=== PATIENT | male | born 1950 | race Caucasian/White ===

== ENCOUNTER 2016-06-07 13:25 | Inpatient (IN) ==
--- NOTE | 2016-06-07 12:19 | Discharge Summary ---
Date of Encounter: 06/11/16 Time of Encounter: 06:44 - Discharge Diagnosis (1) Rotator cuff tear arthropathy of right shoulder Priority: Primary Status: Acute (2) Obesity (BMI 30.0-34.9) Priority: Secondary Status: Chronic (3) Hyperlipidemia Priority: Secondary Status: Chronic Qualifiers: Hyperlipidemia type: unspecified Qualified Code(s): E78.5 - Hyperlipidemia , unspecified - Discharge Medications Home Medications: Ascorbic Acid [Vitamin C] 1,000 mg PO DAILY 01/06/16 [History] Atorvastatin [Lipitor] 40 mg PO HS 02/21/16 [History] OxyCODONE Immed Rel [Roxicodone 5 MG] 5 - 10 mg PO Q6HR PRN #30 tablet 06/07/16 [Rx] Allergies/Adverse Reactions: Allergies codeine Allergy (Verified 06/07/16 13:49) Itching Primary care physician: Maryellen Watts CNP - Patient Status Disposition: Home, Self-Care Condition: Good Functional capacity at discharge: independent ambulation Overall status at discharge: patient is progressing back to baseline - Discharge Instructions Follow Up With: Maryellen Watts CNP [Primary Care Provider] - - Hospital Course Hospital course: Mr. Plummer is a 66 year old male did well PT and antibiotics dc stable condition - Time Spent with Patient Total time spent providing and/or coordinating discharge services:
--- NOTE | 2016-06-07 13:43 | Anesthesia Evaluation PreOp ---
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 History: Denies Any Significant HX Other Medical History: Renal (kidney stones) Anesthesia History: No Prior Anesthetic Complications, Past Anesthesia Alcohol Use: none Drug use: none Medications and Allergies Ascorbic Acid [Vitamin C] 1,000 mg PO DAILY 01/06/16 [History] Atorvastatin [Lipitor] 40 mg PO HS 02/21/16 [History] OxyCODONE Immed Rel [Roxicodone 5 MG] 5 - 10 mg PO Q6HR PRN #30 tablet 06/07/16 [Rx] Allergies codeine Allergy (Verified 01/06/16 11:07) Itching - Meds/Allergy Pre-op Review Medications Reviewed: Yes Allergies Reviewed: Yes Beta Blockers on Current Med List: No Anesthesia Results - Labs Laboratory Tests 05/30/16 05/30/16 05/30/16 10:40 10:40 10:40 WBC 6.7 Hgb 16.7 Hct 49.5 Plt Count 235 PT 12.0 INR 1.1 APTT 29.3 Sodium 142 Potassium 4.4 BUN 17 Creatinine 1.28 H - Imaging EKG: report reviewed (05/30/2016 SB) Anesthesia Exam O2 Sat Height 1.75 m Height 1.75 m Weight 93.894 kg Weight 93.894 kg O2 Sat by Pulse Oximetry 96 Vital Signs Temp Pulse Resp BP Pulse Ox 98.6 F 76 18 142/93 96 06/07/16 13:36 06/07/16 13:36 06/07/16 13:36 06/07/16 13:36 06/07/16 13:36 Height: 5'9'' Weight: 207 lbs NPO (# of Hours): 8 Pain Scale: 0 Pain Scale Used: Numeric (1 - 10) - HEENT Pupil (Motor): EOMI Mallampati: II Teeth: Normal (chipped upper right tooth) Oral Opening: Greater than 3 - RUBBERIZING MECHANIC LOC: Oriented RUBBERIZING MECHANIC Motor: Normal RUE, Normal LUE, Normal RLE, Normal LLE, Normal Face RUBBERIZING MECHANIC Sensory: Normal: RUE, LUE, RLE, LLE, Face - Cardiac Rhythm: Regular Murmur: None - Pulmonary Breath Sounds: bilateral Clear Respiratory Effort: Symmetrical Anesthesia Assess/Plan ASA Score: 2 Modified [place] Scale for Level of Consciousness: Cooperative, oriented, and tranquil Anesthetic Plan: General Monitoring Plan: Standard Monitors Recovery Plan: PACU
--- NOTE | 2016-06-07 13:46 | History & Physical Report ---
Date of Encounter: 06/07/16 Time of Encounter: 13:46 24 Hour HP Update - Instructions Instructions: If the History and Physical is less than 30 days old and was completed prior to A.M. admission and or procedure and has NOT been updated on calendar day of procedure please complete this update prior to performing procedure. - Update Patient reports changes in Medical Condition: No Changes in assessment/condition: No Changes in Medication: No Preop tests/diagnostics Reviewed: Yes Surgery Remains Indicated: Yes Consent for Planned Operative Procedure(s) Verified: Yes - Pre-Operative Checklist Preoperative Checklist Indicated: No Prophylactic Antibiotic Ordered: Yes Is VTE Prophylaxis Indicated?: Yes
[2016-06-07] MEDS ORDERED: CeFAZolin Pre 2,000 MG/100 ML 2,000 MG/100 ML BAG IVPB ONE (13:47)
[2016-06-07] MEDS ORDERED: Ringers Solution, Lactated 1,000 ML IVC SCH ×2 (14:00→16:53)
[2016-06-07] MEDS ORDERED: *HR* FentaNYL (PF) 100 MCG/2 ML VIAL ONE ×2 (14:11→14:12)
[2016-06-07] MEDS ORDERED: Bupivacaine/Clonidine Syringe 1 EACH SYRINGE ONE (14:11)
[2016-06-07] MEDS ORDERED: *HR* Midazolam HCl 5 MG/5 ML VIAL IVP ONE (14:11)
[2016-06-07] MEDS ORDERED: *HR* Midazolam HCl 2 MG/2 ML VIAL ONE (14:12)
[2016-06-07] MEDS ORDERED: *HR* Succinylcholine 200 MG/10 ML VIAL IVP ONE (14:14)
[2016-06-07] MEDS ORDERED: Dexamethasone 4 MG/ML VIAL ONE (14:14)
[2016-06-07] MEDS ORDERED: Ondansetron 4 MG/2 ML VIAL ONE (14:14)
[2016-06-07] MEDS ORDERED: *HR* Rocuronium Bromide 50 MG/5 ML VIAL ONE (14:14)
[2016-06-07] MEDS ORDERED: Lidocaine -MPF 2% 2 ML VIAL ONE (14:14)
[2016-06-07] MEDS ORDERED: *HR* Propofol 200 MG/20 ML VIAL IVP ONE (14:15)
[2016-06-07] MEDS ORDERED: EPHEDrine 50 MG/ML VIAL ONE (15:11)
--- NOTE | 2016-06-07 15:14 | Anesthesia Procedures ---
Date of Encounter: 06/07/16 Time of Encounter: 14:35 Procedures: Anesthesia - Nerve Block Procedure Date: 06/07/16 Time: 14:35 Allergies/Adv Reactions: codeine Pre-op Diagnosis: Right Shoulder Rotator Cuff Arthopathy Surgical Procedure: Reverse Right Total Shoulder Checklist: Correct Patient Identifier, Correct procedure, History checked Correct side: Right Blood Thinner: No Monitor Applied: EKG, BP, Pulse Oximetry Supplemental Oxygen via Nasal Cannula (L/min): 3 Sedation: Versed (mg): 5 Sedation: Fentanyl (mcg): 100 Indication: Post Op Analgesia Pre-op Neuro Deficits: No Block Type: Supraclavicular Catheter placed: No Sterile Technique: Yes Ultrasound used: Yes Anatomy identified: Yes Visual spread of Local: Yes Neuro Stimulation: Yes Nerve Stimulator Range: 0.2 - 0.4 mA Blood on Needle Aspiration: No Smooth Injection of Local: Yes Pain with Injection of Local: No Prep: Chlorhexadine Needle: 22 x 50 mm Stimuplex Local: 0.25% Bupivicaine w/Clonidine 20 mcg/cc Volume (cc): 40 Number of Attempts: 1 Complications: None/effective block Vitals: vss
[2016-06-07] MEDS ORDERED: Albuterol 2.5 MG/3 ML NEBULIZER IH PRN (15:17)
[2016-06-07] MEDS ORDERED: *HR* Promethazine 25 MG/ML VIAL IVP PRN (15:17)
[2016-06-07] MEDS ORDERED: *HR* Morphine 2 MG/ML SYRINGE IVP PRN (15:17)
--- NOTE | 2016-06-07 15:54 | Orthopedic Operative Note ---
Date of procedure: 06/07/16 Pre-op diagnosis: Right shoulder cuff tear arthropathy Post-op diagnosis: same Procedure: Procedure: Right Total Shoulder Replacment Reverse, Estimated blood loss: 100 cc Hardware:Arthrex large glenoid baseplate, 2 4.5 screws. 1 6.5 screw, 42 lateral glenosphere, 12 humeral stem, poly insert 3 and 12 metal Exam Under anesthesia: Full motion and stability Procedural Notes: Irreparable tear supraspinatus Operative procedure: The patient was brought to the operating room and placed on the operating room table. After general anesthesia was administered the operative shoulder was examined. Findings were noted. The patient was placed in the modified beachchair position. All pressure points were padded appropriately. And the head was stabilized in the neutral position. The operative extremity was prepped and draped in the sterile surgical fashion. The patient received IV antibiotics prior to skin incision. A standard deltopectoral approach was made to the operative shoulder. Incision was made to the skin and subcutaneous tissue,hemo stasis was obtained with Bovie cautery. Using careful blunt dissection the cephalic vein was identified and mobilized medially. The deltopectoral interval was developed and the clavipectoral fascia was incised. The subscap was released off the lesser tuberosity and tagged with #2 FiberWire suture. The humerus was dislocated patient noted to have irreparable tear supraspinatus tendon, and the humeral cut was made along the anatomic neck. Anterior and posterior Bankart retractors were placed to expose the glenoid. The glenoid guide was seated and the centering hole was made. It was reamed with the appropriate large reamer. Large baseplate was seated and secured with (2) 4.5 screws and one 6.5 screw. The baseplate was irrigated and dried and the 42 lateral Glenosphere was seated and secured with the Toro taper. The Toro taper was tested and found to be secure the humerus was redislocated and prepared with the diaphyseal reamers, followed by a broaching process up to the appropriate size 12 in the patient's anatomic version. The metaphyseal reamer was then utilized. Trial reduction found the shoulder to be relocatable. Trial components were removed and drill holes were placed in the lesser tuberosity. They were filled with #5 FiberWire suture . These sutures were used for a subscap repair. The appropriate 12 stem was impacted in place in the patient's anatomic version. Trial reduction found the shoulder to be relocatable and stable with the appropriate 12 metal 3 Estrellita Trial component was removed and the 12 metal 3 Estrellita was seated and secured the shoulder was reduced. The shoulder had excellent motion and excellent stability and no evidence of dislocation. The deep tissue was irrigated with pulse irrigation. The subscap was repaired. The deltopectoral interval was closed with a running #1 PDS suture, subcutaneous tissue was irrigated and closed with 0 PDS suture, the skin was closed with Dermabond. The patient was placed in a sterile dressing, abduction brace and extubated. The patient was then transferred to the recovery room in stable condition. Anesthesia: RIOS Surgeon: Harman Arroyo Condition: stable Disposition: PACU
--- NOTE | 2016-06-07 16:35 | Anesthesia Evaluation Post Op ---
Date of Encounter: 06/07/16 Time of Encounter: 16:35 - Vital Signs Vital Signs: vss - Lungs Lungs: Clear Ascult./Percussion - Airway Airway: Non-obstructed - Cardiovascular Regular Rate - Mental Status Mental Status: Alert & Oriented, Answers Appropriately - Pain Pain Scale: 0 - Nausea Vomiting Nausea Vomiting: Not Present - Hydration Hydration: Ice chips - Discharge PostOp Status: Transfer Patient to floor
[2016-06-07 16:42] LABS: Hematocrit 45.6 % (37.5-50.1); Hemoglobin 15.5 g/dL (12.9-16.9)
[2016-06-07] MEDS ORDERED: *HR* OxyCODONE Immed Rel 5 MG TABLET PO PRN (16:53)
[2016-06-07] MEDS ORDERED: *HR* HYDROmorphone (PF) 1 MG/ML SYRINGE IVP PRN (16:53)
[2016-06-07] MEDS ORDERED: Ondansetron 4 MG/2 ML VIAL IVP PRN (16:53)
[2016-06-07] MEDS ORDERED: Temazepam 15 MG CAPSULE PO PRN (16:53)
[2016-06-07] MEDS ORDERED: Naloxone 0.4 MG/ML INJ IVP PRN (16:53)
[2016-06-07] MEDS ORDERED: Sennosides 8.6 MG TABLET PO PRN (16:53)
[2016-06-07] MEDS ORDERED: MOM Conc 10 ML UD.LIQ PO PRN (16:53)
[2016-06-07] MEDS ORDERED: Acetaminophen 325 MG TABLET PO PRN (16:53)
[2016-06-07] MEDS ORDERED: *HR* Enoxaparin 30 MG/0.3 ML SYRINGE SQ SCH (18:00)
[2016-06-07] MEDS: ceFAZolin 2,000 MG in D5% in Water 100 ML IVPB SCH (18:20)
[2016-06-07] MEDS: *HR* Enoxaparin 30 MG/0.3 ML SYRINGE SQ SCH (18:21)
[2016-06-08] MEDS: ceFAZolin 2,000 MG in D5% in Water 100 ML IVPB SCH (00:42)
[2016-06-08] MEDS: *HR* Enoxaparin 30 MG/0.3 ML SYRINGE SQ SCH (06:29)
[2016-06-08 06:47] LABS: Hematocrit 45.5 % (37.5-50.1); Hemoglobin 15.7 g/dL (12.9-16.9)
[2016-06-08] MEDS: *HR* OxyCODONE Immed Rel 5 MG TABLET PO PRN ×2 (07:55→12:23)
--- NOTE | 2016-06-08 08:49 | Orthopedics Progress Note ---
Date of Encounter: 06/08/16 Time of Encounter: 08:47 - Assessment and Plan (1) Rotator cuff tear arthropathy of right shoulder Current Visit: Yes Status: Acute POD#1 - Right TSR-r Doing well. D/C home today with outpatient Subjective Principal diagnosis: POD#1 - Right TSR-r Interval history: POD#1 - Right TSR-r Patient doing well- Afebrile; Vitals stable. Dressing - clean, dry and intact; no erythema, minimal ecchymosis. Shoulder ROM limited. No forearm tenderness. Nerve block wearing off. NV intact distally. Shoulder Precautions - Continue in sling, D/C'ed Pillow. Continue PT. Stable for D/C from orthopedic standpoint - D/C home with outpatient PT. ASA 325 daily x 21 days for DVT prophylaxis Objective Vital signs: Vital Signs Temp Pulse Resp BP Pulse Ox 06/08/16 06:00 97.9 F 58 18 117/70 97 06/08/16 05:22 97.9 F 58 16 116/73 92 L 06/08/16 00:13 97.7 F 71 16 96/58 92 L 06/07/16 21:00 98.0 F 83 16 118/67 95 06/07/16 20:08 98.4 F 85 16 113/66 95 06/07/16 19:07 97.6 F 76 18 98/58 95 06/07/16 18:07 97.6 F 68 16 117/72 95 06/07/16 17:30 97.5 F L 68 16 125/68 92 L 06/07/16 16:56 97.5 F L 65 16 105/69 94 L 06/07/16 16:34 97.0 F L 66 16 115/72 100 06/07/16 16:24 97.0 F L 69 16 118/76 98 06/07/16 16:14 70 16 128/85 100 06/07/16 16:04 73 16 130/78 99 06/07/16 15:54 97.4 F L 67 20 140/84 100 06/07/16 14:39 57 119/67 96 06/07/16 14:15 89 148/79 99 06/07/16 13:36 98.6 F 76 18 142/93 96 Intake and Output 06/07/16 06/08/16 06/08/16 23:59 07:59 15:59 Intake Total 100 / 100 Balance 100 / 100 Intake: IV Fluids 100 / 100 Ancef 2,000 MG In 100 / 100 Dextrose 5% 100 ML @ 200 mls/hr IVPB Q8HR [facility] Rx#: [id number] Incision: clean and dry - Labs CBC & BMP: 06/08/16 06:24 - VTE Documentation of Mechanical Device: Venous foot pump, device Consult Discharge Plan - Plan Referrals: Maryellen Watts, [facility] [Primary Care Provider] -
[2016-06-08 11:12] VITALS: BP 114/74
== END 2016-06-08 13:23 | disposition home or self-care (01) | DRG 483 ==
LOC: SAMDAY 13:25 → 3NENU 16:50
PROVIDERS: ADMIT Orthopaedic Surgery; ATTEND Orthopaedic Surgery

== ENCOUNTER 2016-08-30 12:55 | Inpatient (IN) ==
[2016-08-30] MEDS ORDERED: 0.9 % Sodium Chloride 1,000 ML ONE ×2 (13:02→13:03)
[2016-08-30] MEDS ORDERED: *HR* Heparin 10,000 UNIT/10 ML VIAL ONE (13:02)
[2016-08-30] MEDS ORDERED: Heparin 1,000 UNITS/500 mL NS 500 ML ONE (13:02)
[2016-08-30] MEDS ORDERED: *HR* Bivalirudin 250 MG VIAL IVC ONE (13:03)
[2016-08-30] MEDS ORDERED: Nitroglycerin 1,000 MCG/10 ML VIAL IV ONE (13:03)
[2016-08-30] MEDS ORDERED: *HR* Midazolam HCl 5 MG/5 ML VIAL IVP ONE (13:41)
[2016-08-30] MEDS ORDERED: *HR* FentaNYL (PF) 250 MCG/5 ML VIAL ONE (13:41)
[2016-08-30] MEDS ORDERED: Nitroglycerin 0.4 MG TAB.SUBL SL PRN (14:38)
[2016-08-30] MEDS ORDERED: *HR* Morphine 2 MG/ML SYRINGE IVP PRN (14:38)
[2016-08-30] MEDS ORDERED: Ondansetron 4 MG/2 ML VIAL IVP PRN (14:38)
--- NOTE | 2016-08-30 14:44 | Invasive Diagnostic Lab Proc ---
Name: Jourdan Plummer Date of Study: 08/30/2016 Date: 1950 Ht: 69.0in Medical Record#: [id number] Age: 66 Wt: 189.60lb Gender: Male BSA: 2.02 Order #: [id number] BMI: 27.99 Physicians Procedure Physician: Fany Singleton MD, [facility] Referring MD: Referring MD: Staff Name Position Time In Luna Subramanian RT (R) Scrub 01:47 PM Yonathan Huff RN Economic Specialist 01:48 PM Nirmala Cantor RN Monitor 01:48 PM Maddy Singh RN Nurse 01:50 PM Indications Indication STEMI Procedures Performed Procedure L HRT ARTERY/VENTRICLE ANGIO PRQ CARD REVASC DC 1 VSL Pre-Procedure Checklist Informed consent is complete signed and on chart. H\\T\\P is on chart. ID band is on and ID verified with patient. Patient NPO for procedure The procedure was described for the patient and questions were answered. Blood Pressure: 121/81 ECG is on chart. Rhythm: NSR Plan of Care Patient will tolerate the procedure without complications. Adequate level of comfort will be maintained. Hemodynamics will remain stable Patient will recover from procedure without complications. Respiratory function will be maintained. Cardiac rhythm will remain stable. Patient temperature will be maintained. Patient and/or family have verbalized understanding of the procedure. Patient Education Chief Complaint/Reason for Test: Cardiac Cath Developmental Category: Geriatric (65+ years) Developmentally Appropriate for Age: Yes Learning Barriers: None Education Needs: Procedure Education Method: Verbal Information Taught: Cardiac Cath Educational Evaluation: Able to repeat information Intravenous Access Time IV Size Location DC'd Fluid/Drip Rate Units RN 01:45 PM 18g 1 1/4" Patent On Arrival Lt Arm 01:45 PM 18g 1 1/4" Patent On Arrival Rt Hand No Allergies codeine Vital Signs Time BP (mmHg) HR (bpm) O2 Sat. RR (bpm) LOC 121 / 81 71 98 % 16 01:51 PM / % 5 = Fully awake and oriented or at pre-proc level 01:51 PM / % 4 = Oriented but drowsy 01:52 PM 158 / 87 86 100 % 22 01:57 PM 148 / 72 63 97 % 26 02:01 PM 144 / 85 82 96 % 12 02:06 PM 143 / 76 82 97 % 13 02:11 PM 136 / 88 84 95 % 22 02:06 PM / % 4 = Oriented but drowsy Procedural Medications Time Medication Dose Units Method Given By 01:49 PM Oxygen 2 L/min nasal cannula Yonathan Huff RN 01:53 PM Versed 2 mg Intravenous Maddy Singh RN 01:53 PM Fentanyl 50 mcg Intravenous Maddy Singh RN 01:54 PM Lidocaine 2% 20 ml Subcutaneous Fany Singleton MD, FACC 02:05 PM Nitroglycerin 200 mcg Intracoronary Fany Singleton MD, FACC 02:16 PM Reopro Bolus: 10.8 ml Intravenous Yonathan Huff RN 02:00 PM Heparin 1000 units Intravenous Yonathan Huff RN ASA Classification: CLASS II- Mild systemic disease (i.e. well-controlled diabetes, hypertension, asthma, cigarette smoking) Emergent Procedure: ASA score is assumed Judi Score Preprocedure Postprocedure Activity 2- Moves 4 extremities sustained head lift Activity 2- Moves 4 extremities sustained head lift Circulation 2- SBP +/= 20 points of pre-anesthetic level Circulation 2- SBP +/= 20 points of pre-anesthetic level Consciousness 2- Awake and alert oriented x 3 Consciousness 2- Awake and alert oriented x 3 O2 Saturation 2- Able to maintain O2 satruation of 92% on room air O2 Saturation 2- Able to maintain O2 satruation of 92% on room air Respiratory 2- Able to deep breathe and cough well Respiratory 2- Able to deep breathe and cough well Total Score 10 Total Score 10 Contrast Agent: Isovue Diagnostic Contrast: 105 ml Total Contrast: 105 ml Fluoro Dose: 481 mGy Activated Clotting Time Time Seconds to Clot 02:00 PM 227 02:14 PM 147 Procedure Log Time Note Enter By 01:08 PM Recorded Pressure: LV, Ao, HR=83, Condition=Condition 1 (Left Ventricle) LV 165/43/113, (Aorta) Ao 109/87/98 01:45 PM CathStat 01:47 PM Pt arrived to hospital laboratory technician 2 at 13:47 csmith 01:48 PM Luna Subramanian (R) Position: Scrub Time in: 13:47 csmith 01:48 PM Yonathan Huff RN Position: Economic Specialist Time in: 13:48 csmith 01:48 PM Nirmala Cantor RN Position: Monitor Time in: 13:48 csmith 01:48 PM Patient charges- Angio tray pack, Navilyst 3mm J, Pulse Oximetry and ACIST tubing and transducer csmith :48 PM Case Delayed No csmith :48 PM Hair removed from procedure site in procedure lab using clippers. Bilateral groin prepped with Chloraprep by Luna Subramanian (R), safety strap applied then patient was draped. Skin intact. csmith :48 PM Physician arrived 13:48 csmith :49 PM Meet and greet completed csmith :49 PM Time: 13:49 Oxygen on at 2 L/min per nasal cannula [facility] Huff [facility] PM Procedure start 13:49 scoates 01:50 PM Maddy Singh RN Position: Nurse Time in: 13:50 csmith :50 PM Vitals capture started with the following parameters, Patient=Adult, Interval=5 min, Initial Hlhjdhls=149 mmHg, Deflation Rate=5 mmHg, Cuff placed on Left Arm 01:51 PM Time: 13:51 Patient comfortable and pain free: Yes csmith :51 PM Time: 13:51LOC: 5 = Fully awake and oriented or at pre-proc level csmith :52 PM HR=86 bpm, UOPK=817/87 mmhg, ZlM1=015.0 %, Resp=22 B/min, Comment=nsr 01:53 PM Clinical Presentation: STEMI or equivalent csmith :53 PM Time out performed according to hospital [facility] PM Time: 13:53 Versed 2 mg Intravenous Given by Maddy Singh RN [facility] :53 PM Time: 13:53 Fentanyl 50 mcg Intravenous Given by Maddy Singh RN [facility] :54 PM Time: 13:54 20 ml Lidocaine 2% to right groin Subcutaneous Given by Fany Singleton MD, [facility] :54 PM Access obtained by percutaneous puncture. 6Fr 11cm Terumo Destination sheath placed in right Femoral artery. [id number] [facility] :54 PM Pressure channel 1 zeroed. 01:55 PM 5Fr FL 4 catheter inserted over the wire [facility] scoates 01:56 PM LCA angiography performed in multiple views. scoates 01:56 PM Pressure channel 1 zeroed. 01:56 PM Pressure channel 1 zeroed. 01:56 PM Recorded Pressure: Ao, HR=75, Condition=Condition 1 (Aorta) Ao 108/71/88 01:57 PM HR=63 bpm, IDQO=804/72 mmhg, SpO2=97.0 %, Resp=26 B/min 01:57 PM Catheter removed scoates 01:57 PM 6Fr JR4 Runway guide catheter was used to cannulate the PCI vessel successfully. reused? No scoates 01:58 PM Recorded Pressure: Ao, HR=81, Condition=Condition 1 (Aorta) Ao 137/73/101 01:59 PM RCA angiography performed in multiple views. scoates 01:59 PM Recorded Pressure: Ao, HR=84, Condition=Condition 1 (Aorta) Ao 134/80/104 02:00 PM Time: 14:00 Heparin 1000 units Intravenous Given by Yonathan Huff RN scoates 02:00 PM At 14:00 the ACT was 227 seconds. scoates 02:01 PM .014 Prowater 180cm guide wire across target lesion- successful. reused? No scoates 02:01 PM HR=82 bpm, MKLD=196/85 mmhg, SpO2=96.0 %, Resp=12 B/min, Comment=nsr 02:01 PM 2.5 mm x 15 mm Emerge Monorail balloon across target lesion- successful. reused? No scoates 02:02 PM Balloon inflated @ 10 josephine for 26 seconds scoates 02:02 PM Lesion found in Proximal RCA. Pre Stenosis: 99 Pre BRIDGET Flow: 3: Complete and Brisk Flow/Perfusion scoates 02:03 PM Balloon catheter removed intact. scoates 02:03 PM 3.5mm x 20mm Synergy drug-eluting stent across target lesion- successful Lot #[id number] scoates 02:04 PM Recorded Pressure: Ao, HR=84, Condition=Condition 1 (Aorta) Ao 124/85/104 02:04 PM Stent deployed @ 12 josephine for 30 seconds scoates 02:05 PM Stent delivery system removed intact. scoates 02:06 PM Time: 14:05 Nitroglycerin 200 mcg Intracoronary Given by Fany Singleton MD, [facility] scoates 02:06 PM Time: 13:51 Patient comfortable and pain free: Yes scoates 02:06 PM Time: 13:51LOC: 4 = Oriented but drowsy scoates 02:06 PM HR=82 bpm, TRKN=413/76 mmhg, SpO2=97.0 %, Resp=13 B/min, Comment=nsr 02:07 PM Stent delivery system removed intact. scoates 02:07 PM 5Fr Pigtail catheter inserted over the wire [facility] scoates 02:08 PM Pressure channel 1 zeroed. 02:08 PM Catheter selectively placed in left ventricle scoates 02:08 PM Recorded Pressure: LV, HR=81, Condition=Condition 1 (Left Ventricle) LV 116/10/11 02:08 PM Bolus angiogram of left Ventricle complete: 8 ml/sec for a total of 24 mls scoates 02:10 PM Bolus angiogram of right Femoral complete: 4 ml/sec for a total of 7 mls scoates 02:11 PM HR=84 bpm, QYEW=854/88 mmhg, SpO2=95.0 %, Resp=22 B/min 02:12 PM Coronary Dominance: right scoates 02:14 PM At 14:14 the ACT was 147 seconds. scoates 02:17 PM Time: 14:16 Reopro Bolus: 10.8 ml Intravenous Given by Yonathan Huff RN [place] pump scoates 02:17 PM Procedure completed at 14:17 scoates 02:17 PM Sign out completed: Radiation Dose 481 mGy Fluoro Time: 3.6 Isovue 370 - 200ml contrast 105 ml given by Fany Singleton MD, [facility]. Complications: NoneCardiac Rehab Consult needed: YesConfirmed administered medications: Yes scoates 02:17 PM Isovue 370 - 500ml,1 Bottle(s) used. scoates 02:17 PM Sheath left in place to be pulled on floor/holding area scoates 02:18 PM Post ECG NSR scoates 02:18 PM Post Blood Pressure 143/79 scoates 02:18 PM 14:18 Post Pulses Bilateral DP \\T\\ PT 1+ scoates 02:18 PM Information taught Cardiac Cath and PCI scoates 02:19 PM Education needs Procedure, Plan of Care, and Responsibilities of Patient in Care scoates 02:19 PM Learning barriers :None scoates 02:19 PM Education Methods Verbal scoates 02:19 PM Education evaluation Able to repeat information scoates 02:19 PM Site status No bleeding/hematoma - Rt Groin as reported by Luna Subramanian RT (R) at 14:19 scoates 02:19 PM Opsite applied scoates 02:19 PM Plavix, Effient or Brilinta given at [place] scoates 02:20 PM Coronary Dominance: right scoates 02:20 PM Lesion found in LMCA. Pre Stenosis: 15 Pre BRIDGET Flow: scoates 02:21 PM Lesion found in Proximal LAD. Pre Stenosis: 30 Pre BRIDGET Flow: scoates 02:21 PM Time: 14:06 Patient comfortable and pain free: Yes scoates 02:21 PM Time: 14:06LOC: 4 = Oriented but drowsy scoates 02:24 PM Lesion found in Proximal LAD. Pre Stenosis: 30 Pre BRIDGET Flow: scoates 02:24 PM Lesion found in Mid LAD. Pre Stenosis: 30 Pre BRIDGET Flow: scoates 02:24 PM Lesion found in Distal LAD. Pre Stenosis: 30 Pre BRIDGET Flow: scoates 02:24 PM Lesion found in Proximal Circumflex. Pre Stenosis: 20 Pre BRIDGET Flow: scoates 02:29 PM Report given to Roxane SANCHEZ Pt taken to ICU Room #7. 14:29 scoates 02:31 PM Delay to floor No scoates 02:31 PM Patient out of room: 14:31 scoates 02:32 PM Family placed in consult room. scoates 02:32 PM Complications: None scoates 02:32 PM Fluoro Time: 3.6 scoates 02:33 PM Left Main Coronary Artery with 15% stenosis scoates 02:33 PM Proximal Left Anterior Descending Coronary Artery with 30% stenosis. If graft is supplying this territory, 0 % stenosis. scoates 02:33 PM Mid/Distal Left Anterior Descending Coronary Artery and diagonal branches with 30% stenosis. If graft is supplying this area, 0 % stenosis scoates 02:34 PM Circumflex, Obtuse Marginal, Left Posterior Descending, and Left Posterolateral Coronary Arteries with 20 % stenosis. If graft is supplying this area, 0 % stenosis scoates 02:34 PM Right Coronary, Right Posterior Descending Arteries with Right Posterolateral and Acute Marginal branches with 99 % stenosis. If graft is supplying this area, 0 % stenosis scoates Complications Complication None None Hemodynamics Pressures Site Systolic/A Wave Diastolic/V Wave Mean AO 108 71 88 AO 137 73 101 AO 134 80 104 AO 124 85 104 LV 116 10 11 LV 165 43 113 AO 109 87 98 Post Procedure Information Blood Pressure: 143/79 mmHg Rhythm: NSR Post procedural instructions were given Closure Device Time Device Success/Fail 08/30/2016 2:29:00 PM Manual Compression - sheath to be pulled in ICU when appropriate Site Checks Time Location Status Staff Sheath In? Note 02:19 PM Rt Groin No bleeding/hematoma Luna Subramanian RT (R) Pulses Time Site Pre-Procedure Post-Procedure Note 08/30/2016 1:45:00 PM Bilateral DP \\T\\ PT 1+ 2:18:00 PM Bilateral DP \\T\\ PT 1+ Updated by Yonathan Huff RN on 08/30/2016 2:36:44 PM electronically signed on 08/30/2016 2:39:30 PM with status of Final
--- NOTE | 2016-08-30 16:33 | Invasive Diagnostic Lab ---
Name: Jourdan Plummer Date of Study: 08/30/2016 Date: 1950 Ht: 175.3 cm /69.0 in Medical Record#: [id number] Age: 66 Wt: 86. kg / 189.60 lb Account/Order#: [id number] Gender: Male BSA: 2.02 Order #: [id number] Fluoro Dose: 481 mGy BMI: 27.99 Procedure Physician: Fany Singleton MD, [facility] Referring MD: Referring MD: Procedures Performed: LEFT HEART CATH PCI of Acute VT Indications: STEMI Impressions: Single vessel coronary artery disease. The left ventricle is normal and has normal contractility EF 65% Patient had successful PTCA/Drug-Eluting Stent placement in the proximal RCA. Recommendations: DAPT for one year minimum uninterrupted. Optimal medical therapy of patient's disease. Aggressive risk factor modification. Patient being referred for cardiac rehab. History/Risk Factors: arthritis high chol r shoulder sx Hypertension Procedure Access obtained in the right Femoral artery by percutaneous puncture Patient had successful PTCA/Drug-Eluting Stent placement in the proximal RCA. Complications: None, None Contrast: Isovue 105ml Closure Device: Manual Compression Hemodynamics: Pressures Site Systolic/ A Wave Diastolic/ V Wave End Diastolic/ Mean HR AO 108 71 88 75 AO 137 73 101 81 AO 134 80 104 84 AO 124 85 104 84 LV 116 10 11 81 LV 165 43 113 82 AO 109 87 98 84 LV Ventriculography Ejection Method: LV Gram Ejection Fraction: 65% Wall Motion: CASE Anterobasal Normal Anterolateral Normal Apical: Normal Inferoapical Normal Inferobasal Normal Coronary Dominance: right Lesion Findings/Interventions * Left Main Coronary Artery There is a 15% stenosis in the LMCA. * Left Anterior Descending There is a 30% stenosis in the Proximal LAD. There is a 30% stenosis in the Mid LAD. There is a 30% stenosis in the Distal LAD. * Circumflex There is a 20% stenosis in the Proximal Circumflex. * Right Coronary Artery There is a 20 mm long, 99% stenosis in the Proximal RCA. The lesion has a BRIDGET flow of 3 and has thrombus present. An intervention was performed on the Proximal RCA with a final stenosis of 0%. There were no lesion complications. The final BRIDGET flow was 3. Interventional Device(s) Vessel Segment Type Name Diameter (mm) Length (mm) Proximal RCA Balloon Emerge Monorail 2.5 15 Proximal RCA Drug Eluting Stent Synergy 3.5 20 Updated by Yonathan Huff RN on 08/30/2016 2:37:22 PM Fany Singleton MD, [facility] electronically signed on 08/30/2016 4:26:49 PM with status of Final
[2016-08-30 16:37] LABS: Basophils % 0.4 %; Eosinophils % 0.2 %; Hematocrit 47.9 % (37.5-50.1); Hemoglobin 16.4 g/dL (12.9-16.9); Immature Granulocytes % 0.5 % (0-4); Lymphocytes # 1.4 K/mcL (0.6-4.6); Lymphocytes % 12.4 %; Mean Corpuscular HGB Conc 34.2 g/dL (31.6-35.5); Mean Corpuscular Hemoglobin 30.6 pg (28.0-33.3); Mean Corpuscular Volume 89.4 fL (83.0-100.0); Mean Platelet Volume 8.9 fL (9.4-12.4); Monocytes # 0.4 K/mcL (0.0-1.3); Monocytes % 3.4 %; Neutrophils # 9.2 K/mcL (1.6-8.9); Platelet Count 311 K/mcL (140-400); Red Blood Count 5.36 M/mcL (4.19-5.50); Red Cell Distribution Width 12.4 % (11.5-14.5); Segmented Neutrophils % 83.1 %
--- NOTE | 2016-08-30 16:37 | Cardiology History & Physical ---
Date of Encounter: 08/30/16 Time of Encounter: 13:50 Assessment and Plan (1) STEMI (ST elevation myocardial infarction) Current Visit: Yes Status: Acute Pt is currently experiencing acute inferior/posterior STEMI. Have discussed emergent LHC and probable PCI with patient. Agreeable to proceed. The assessment and plan as outlined above was discussed with the patient and/or family members who expressed understanding and agreement. All questions were answered. Further recommendations pending results of cath. Qualifiers: Involved coronary artery: unspecified coronary artery Qualified Code(s): I21.3 - ST elevation (STEMI) myocardial infarction of unspecified site (2) Hyperlipidemia Current Visit: No Status: Chronic Statin therapy. Qualifiers: Hyperlipidemia type: unspecified Qualified Code(s): E78.5 - Hyperlipidemia , unspecified History of Present Illness Chief complaint: chest pain HPI: Mr. Plummer is a 66 year old male with hyperlipidemia presents to [facility] as transfer from [place] ED for STEMI. 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 Associated with SOB. EMS contacted. EKG demonstrated inferior/posterior STEMI. Taken to [place] ED and transferred here for further evaluation/tx. Denies prior cardiac history. Past Med Surg Social Fam HX - Past Medical History Source: patient Medical history: arthritis, hyperlipidemia Psychiatric history: no psych history - Past Surgical History Surgical History: appendectomy, cholecystectomy, orthopedic, other (R shoulder) - Social History Smoking Status: Never smoker Smokeless Tobacco Status: No Alcohol use: none Drug use: none - Family History Father Living Status: Cause of : lymphoma Hx Family Cancer: (lymphoma) Medications and Allergies Ascorbic Acid [Vitamin C] 1,000 mg PO DAILY 01/06/16 [History] Atorvastatin [Lipitor] 40 mg PO HS 02/21/16 [History] Allergies codeine Allergy (Verified 06/07/16 13:49) Itching ROS unobtainable: other (emergency) All Systems Review: A 10-system review of systems was performed and is negative for pertinent findings except as documented above in the HPI. - Cardiovascular Cardiovascular: as per HPI Physical Examination Vital Signs, Last 4 Hours Temp Pulse Pulse Resp BP Pulse Ox 08/30/16 15:13 97.1 F L 77 18 129/75 99 08/30/16 14:52 97.1 F L 77 79 18 132/71 99 General: Other (mild distress, uncomfortable) HEENT: Atraumatic, Normocephaly, Mucus Membranes Moist Neck: No JVD, Normal carotid pulses Cardiac: Reg Rate and Rhythm, Normal S1 and S2, No Murmur Lungs: Normal Breath Sounds, No Wheeze, Rales, Rhonchi Neuro: Alert and responsive, No focal deficits noted Abdomen: Soft, Non-Tender Skin: No rashes noted on visualized skin Musculoskeletal: No Chest Wall Tenderness Extremities: No Clubbing, No Cyanosis, No Edema, Normal Pulses Results - EKG Interpretation EKG results cardiology: personally reviewed (NSR, inferior/posterior STEMI) - VTE Reasons for not Prescribing Prophylaxis: Not indicated-Anticoagulated or INR therapeutic
[2016-08-30 16:52] LABS: BUN/Creatinine Ratio 14 (6-26); Blood Urea Nitrogen 18 mg/dL (8-26); Calcium 9.5 mg/dL (8.6-10.8); Carbon Dioxide 25 mEq/L (19-29); Chloride 107 mEq/L (98-109); Glucose 99 mg/dL (70-99); Osmolality,Calculated 294 (280-300); Sodium 141 mEq/L (136-145); eGFR For African Americans > 60 (> 60); eGFR For Non-African Americans 58 (> 60)
[2016-08-30] MEDS ORDERED: cloNIDine HCl 0.1 MG TABLET PO ONE (17:10)
[2016-08-31 04:30] LABS: Basophils # 0.1 K/mcL (0.0-0.2); Basophils % 0.7 %; Eosinophils # 0.2 K/mcL (0.0-0.6); Eosinophils % 2.2 %; Hematocrit 45.5 % (37.5-50.1); Immature Granulocytes % 0.4 % (0-4); Lymphocytes # 3.3 K/mcL (0.6-4.6); Lymphocytes % 30.8 %; Mean Corpuscular HGB Conc 32.5 g/dL (31.6-35.5); Mean Corpuscular Hemoglobin 30.8 pg (28.0-33.3); Mean Corpuscular Volume 94.8 fL (83.0-100.0); Mean Platelet Volume 9.3 fL (9.4-12.4); Monocytes # 0.6 K/mcL (0.0-1.3); Neutrophils # 6.4 K/mcL (1.6-8.9); Platelet Count 276 K/mcL (140-400); Red Cell Distribution Width 12.8 % (11.5-14.5); Segmented Neutrophils % 59.9 %
[2016-08-31 04:35] LABS: Hemoglobin 14.8 g/dL (12.9-16.9)
[2016-08-31 04:50] LABS: BUN/Creatinine Ratio 13 (6-26); Blood Urea Nitrogen 16 mg/dL (8-26); Calcium 8.5 mg/dL (8.6-10.8); Carbon Dioxide 24 mEq/L (19-29); Chloride 107 mEq/L (98-109); Chol/HDL Ratio 5.9 (0-4.9); Cholesterol 200 mg/dL (< 200); Glucose 100 mg/dL (70-99); HDL Cholesterol 34 mg/dL (40-59); LDL Cholesterol,Calculated 132 mg/dL (0-99); Osmolality,Calculated 293 (280-300); Potassium 4.1 mEq/L (3.5-4.5); Sodium 141 mEq/L (136-145); Triglycerides 169 mg/dL (< 150); eGFR For African Americans > 60 (> 60); eGFR For Non-African Americans > 60 (> 60)
[2016-08-31] MEDS ORDERED: Aspirin 81 MG TAB.CHEW PO SCH (09:00)
--- NOTE | 2016-08-31 10:30 | Discharge Summary ---
Date of Encounter: 08/31/16 Time of Encounter: 09:00 - Discharge Diagnosis (1) STEMI (ST elevation myocardial infarction) Priority: Primary Status: Acute Comments: s/p PCI to pRCA. Qualifiers: Involved coronary artery: right coronary artery Qualified Code(s): I21.11 - ST elevation (STEMI) myocardial infarction involving right coronary artery (2) Hyperlipidemia Priority: Secondary Status: Chronic Qualifiers: Hyperlipidemia type: mixed hyperlipidemia Qualified Code(s): E78.2 - Mixed hyperlipidemia - Discharge Medications Prescriptions: Nitroglycerin 0.4 mg SL Q5MIN PRN #30 tab.subl PRN Reason: Chest Pain Aspirin 81 mg PO DAILY #30 tab.chew Atorvastatin [Lipitor] 80 mg PO HS #30 tablet Clopidogrel [Plavix] 75 mg PO DAILY #30 tablet Lisinopril [Zestril] 2.5 mg PO DAILY #30 tablet Metoprolol [Lopressor] 25 mg PO BID #60 tablet Home Medications: Ascorbic Acid [Vitamin C] 1,000 mg PO DAILY 01/06/16 [History] Aspirin 81 mg PO DAILY #30 tab.chew 08/31/16 [Rx] Atorvastatin [Lipitor] 80 mg PO HS #30 tablet 08/31/16 [Rx] Clopidogrel [Plavix] 75 mg PO DAILY #30 tablet 08/31/16 [Rx] Lisinopril [Zestril] 2.5 mg PO DAILY #30 tablet 08/31/16 [Rx] Metoprolol [Lopressor] 25 mg PO BID #60 tablet 08/31/16 [Rx] Nitroglycerin 0.4 mg SL Q5MIN PRN #30 tab.subl 08/31/16 [Rx] Allergies/Adverse Reactions: Allergies codeine Allergy (Verified 06/07/16 13:49) Itching Procedures/tests Complete & Pending: Procedures Performed prior 72 hours Category Date Time Status CL Cardiac Catheterization [CL] Stat Loader 08/30/16 13:32 Completed ECG 12 lead ECG [ECG] Routine Y 08/31/16 07:00 Ordered ECG 12 lead ECG [ECG] Stat Y 08/30/16 14:38 Completed EV echocardiogram Routine Y 08/31/16 07:00 Completed Date of admission: 08/30/16 16:18 Primary care physician: Maryellen Watts CNP Consults: 08/30/16 14:38 Consult to Cardiac Rehabilitation-Phase1 [CONS] Routine Comment: Reason for Consult: AMI Call Completed: Yes Consult to Nurse Navigator [CONS] Routine Comment: Discharging clinician: Krupa Bonds Anticipated date of discharge: 08/31/16 - Patient Status Disposition: Home, Self-Care Condition: Good Functional capacity at discharge: independent ambulation Overall status at discharge: patient is progressing back to baseline - Discharge Instructions Instructions: Myocardial Infarction (DC), Chest Pain (DC), Low Fat Diet (DC) Follow Up With: Maryellen Watts CNP [Primary Care Provider] - 09/04/16 1:00 pm Krupa Bonds CNP [Partnered Physician] - 09/04/16 10:30 am Additional Instructions: RISK FACTORS: STOP SMOKING: If you smoke, STOP. Smoking or tobacco use significantly increases your risk of heart disease because nicotine causes the arteries to narrow or constrict. It also causes fats to stick to the artery. Your chances of having a heart attack are greatly increased if you continue to smoke. For more information, call the education line for smoking cessation 5-461-AOYSJAO EAT A LOW FAT/CHOLESTEROL/SODIUM DIET: This diet may help reduce your chances of having a heart attack. LIFTING: Avoid lifting anything more than 10 pounds for 5-7 days Prior to straining, laughing, sneezing and/or coughing, apply manual pressure directly over insertion site. ACTIVITY: You may walk or climb stairs as tolerated You can resume sexual activity as tolerated In general, you are encouraged to engage in a minimum of 30 minutes or more of moderate intensity physical activity, such as brisk walking, daily or at least 3 -4 times weekly BATHING Do not submerge the site into water (bath tub, hot tub, swimming pool) for 1 week. This can be a source for infection into the blood stream. You may shower after 24 hours SITE CARE: After 24 hours, you may remove the dressing and leave the site open to air. Keep the site clean and dry. Clean gently and pat dry. You can expect bruising and tenderness that gradually resolve within a week or two. Return to work as instructed per your physician Resume driving as instructed per physician Keep all scheduled follow up appointments Resume medications as instructed IMPORTANT: If prescribed a Platelet Aggregation Inhibitor such as, Plavix, Brilinta or Effient: Duration of therapy is minimum one year These medications are often used in combination with Aspirin in prevention of future heart attacks Never discontinue unless consult with your Degreasing Solution Reclaimer STROKE (CVA) Risk factors for a stroke are: Age, cigarette smoking, diabetes, excessive alcohol consumption, family history, high blood pressure, overweight, physical inactivity, prior stroke, heart attack, diagnosis of carotid artery stenosis or other artery disease. Warning signs: Sudden numbness or weakness of the face, arm or leg; especially on one side of the body, sudden confusion, trouble speaking or understanding, sudden trouble seeing in one or both eyes, sudden trouble walking, dizziness, loss of balance or coordination, sudden severe headache with no cause. Call 911 or go to the Emergency Room. CONGESTIVE HEART FAILURE: If you have been diagnosed with Congestive Heart Failure (CHF) and your symptoms return, make an appointment with your physician Weigh yourself daily. Notify your physician if you have a weight gain of two or more pounds in one day or five or more pounds in one week. If you experience any difficulty breathing, please call 911 BLEEDING: Although the risk of bleeding is minimal, it can happen. If you have any bleeding from the site, apply firm pressure above the puncture site for 10-15 minutes. If the bleeding does not stop, continue manual pressure and call 911 Contact your physician if: You develop a fever greater than 101 degrees Fahrenheit Your site becomes reddened or has any drainage You have an increase in pain or burning at the site or if a large knot forms at the site. If you experience chest pain, shortness of breath, dizziness, or extreme tiredness, stop the activity and rest. Please notify your physicians office if you experience any of these symptoms and they are not relieved by rest please call 911! - Diet and Activity Activity: increase activity as tolerated (per post PCI discharge instruction. ) , return to work once cleared by your PCP/specialist Diet: low fat, low cholesterol, low salt diet - Hospital Course Hospital course: Mr. Plummer is a 66 year old male who presented to [place] ED as inferior STEMI; he was emergently transferred to [facility] for LHC. He is s/p successful PTCA/ RAFAEL to pRCA stenosis; otherwise mild, non-obstructive CAD. EF preserved per LV gram. Past medical history otherwise significant for former tobacco use, arthritis s/p shoulder surgery, and HLD. At time of symptoms yesterday, he was outside doing yardwork. He was admitted to ICU and kept overnight for observation. This morning upon exam he has no complaints; denies recurrent chest pain/discomfort since PCI. Vital signs, telemetry, and labs have been stable. Will plan for discharge to home later today. Post PCI discharge instructions including importance of uninterrupted DAPT ( asa + plavix) discussed at length. He was started on statin , betablocker, and ACEi. He was provided NTG tabs at discharge. Plans to participate in cardiac rehab in the outpatient setting. EF preserved per TTE. Mr. Plummer is being prepped for discharge to home later today/afternoon in stable condition. All questions and concerns were addressed prior to discharge. He will follow-up with PCP and [facility] within 5-7 days. - Time Spent with Patient Total time spent providing and/or coordinating discharge services 45 minutes Greater than 30 minutes Specific discharge activities: per post PCI discharge instructions, please provide written copy. No heavy lifting >5 pounds for 1 week. Avoid strenuous or exertional activities until seen by Cardiology at follow-up. Keep right groin cath access site clean and dry until healed. Physical Examination Vital Signs, Last 4 Hours Pulse Resp BP Pulse Ox 08/31/16 09:00 59 16 115/71 97 08/31/16 08:00 61 16 110/70 98 08/31/16 07:57 60 08/31/16 07:00 58 16 116/66 96 General: Conversant, No Apparent Distress HEENT: Atraumatic, Normocephaly Cardiac: Reg Rate and Rhythm, Normal S1 and S2 Lungs: Normal Breath Sounds Neuro: Alert and responsive Abdomen: Soft Skin: No rashes noted on visualized skin Musculoskeletal: No Chest Wall Tenderness Extremities: No Edema, Normal Pulses Other: Right groin cath site: dressing clean/dry/intact. No hematoma, oozing, or bleeding noted at site. +2 DP/PT pulses bilaterally. - VTE Reasons for not Prescribing Prophylaxis: Not indicated-Anticoagulated or INR therapeutic
--- NOTE | 2016-08-31 13:06 | ECHO - Doppler Report ---
Echocardiogram Name: Jourdan Plummer Date of Study: 08/31/2016 Date: 1950 Ht: 68.0 in Medical Record#: [id number] Age: 66 Wt: 210.0 lb Gender: Male BSA: 2.09 Order #: [id number] Location: [facility] Room #: IC Reading Physician: Donta Rincon DO, [facility], CHRIS Senior Power Scheduler: BRINA HumphreysT, [facility] Ordering Physician: Fany Singleton MD, [facility] Primary Physician: None Indications: Myocardial infarction Impressions: LVEF 55-60%. Normal LV chamber size, wall thickness and function. Normal left ventricular diastolic function. Normal right ventricular structure and function. No evidence of pulmonary hypertension. No significant valvular dysfunction. Left Ventricular Wall Motion: Rest Echo Findings All wall segments showed normal motion. Findings: Study Quality * Technically adequate exam. ECG Findings * Sinus rhythm with BBB. Left Ventricle * LVEF 55-60%. * Normal LV chamber size, wall thickness and function. * Normal left ventricular diastolic function. Right Ventricle * Normal right ventricular structure and function. Left Atrium * Mildly dilated left atrium. Right Atrium * Normal right atrial size. Interatrial Septum * Interatrial septum not well evaluated. Aortic Valve * Trileaflet aortic valve with normal function. * No aortic regurgitation. * No aortic stenosis. Mitral Valve * Normal mitral valve structure and function. * No mitral regurgitation. * No mitral stenosis. Tricuspid Valve * Normal tricuspid valve structure and function. * Trace tricuspid regurgitation. * No evidence of pulmonary hypertension. Pulmonic Valve * Normal pulmonic valve structure and function. * No pulmonic regurgitation. Pericardium * The pericardium appears normal. Aorta * Normally sized aortic root. IVC * Normal IVC dimensions and inspiratory collapse. Pulmonary Artery * Normal visualized portions of the main pulmonary artery. History Hypercholesteremia Measurements: BP: 110/ 70 2D Normal Values RVIDd: 3.80 cm <2.7 cm IVSd: 1.20 cm 0.6 - 1.0 cm LVIDd: 3.70 cm 3.7 - 5.6 cm LVPWd: 1.00 cm 0.6 - 1.1 cm LVIDs: 2.40 cm 1.5 - 3.6 cm AO: 2.80 cm < 4.0 cm LA: 3.30 cm 2.0 - 4.0cm %FS: 35.10 cm >25 % LA volume: 38 Mitral Valve Dec Time:208.00 msec Peak E:.78 m/sec Peak A:.63 m/sec E/A Ratio:1.2 Peak E' Lat Erasmo:14.6 cm/s Peak E' Med Erasmo:13.6 cm/s E/E' Lat Ratio:5.3 E/E' Med Ratio:5.7 Tricuspid Valve TV Regurg Peak Grad: 17.00mmHg TV Regurg Peak Erasmo: 2.05m/sec Updated by Donta Rincon DO, [facility], [facility]IS, DONNIE on 08/31/2016 1:01:40 PM electronically signed on 08/31/2016 1:02:17 PM with status of Final Wall Motion Hernandez: 1=Normal, 2=Hypokinesis, 3=Akinesis, 4=Dyskinesis, 5=Aneurysmal, 6=Hyperkinetic, X=Not Visualized (Blank)=Missing
--- NOTE | 2016-08-31 13:28 | Electrocardiograph Report ---
[address] [address] Test Date: 2016-08-30 Pat Name: Jourdan Plummer Department: 109 Room: [facility] Gender: M Multi Care Technician: : 1950 Requested By: Fany Singleton Order Number: [id number] Reading MD: Lev Singleton Measurements Intervals [place] Rate: 77 P: 39 CO: 181 QRS: -6 QRSD: 106 T: 29 QT: 369 QTc: 401 Interpretive Statements SINUS RHYTHM Electronically Signed On 08-31-2016 13:26:28 EDT by Lev Singelton
[2016-08-31 13:52] VITALS: BP 110/67
== END 2016-08-31 14:45 | disposition home or self-care (01) | DRG 247 ==
LOC: ICNU 16:18
PROVIDERS: ADMIT Internal Medicine Interventional Cardiology; ATTEND Internal Medicine Interventional Cardiology